=== PATIENT | female | born 1995 | race Caucasian/White ===

== ENCOUNTER 2024-04-13 19:19 | Emergency (ER) | payer OTHER, SELFPAY ==
[2024-04-13 19:25] VITALS: BP 147/75; PULSE 84; RESP 16; TEMP 36.4; O2SAT 100
--- NOTE | 2024-04-13 19:45 | ED.SKABFB ---
HPI - Skin/Abscess/Foreign Bdy General Chief complaint: Skin/Abscess/Foreign Body Stated complaint: spider bite on stomach Time Seen by Provider: 04/13/24 19:39 Source: patient, RN notes reviewed and old records reviewed Mode of arrival: ambulatory Limitations: no limitations History of Present Illness HPI narrative: 29 year old female who presents to express care with complaints of red round area on abdomen that patient is concerned could be spider bite. Patient reports that redness around the initial pinpoint dave has increased in size daily. and now there seems to be a tail off of it. Patient reports no acute pain to area, no fevers chills or sweats, tissue is not warm to touch no sloughing of tissue initial pinpoint dave in center of redness is red in color. Patient reports that she is breast feeding twice daily morning and night. MD complaint: insect bite/sting and abscess/boil Onset (ago): day(s) (3) Location: chest (abdomen) Severity scale (1-10): 3 Quality: aching Treatments prior to arrival: none Related Data Allergies Allergy/AdvReac Type Severity Reaction Status Date / Time No Known Allergies Allergy Verified 04/13/24 19:52 Review of Systems Review of Systems: CONSTITUTIONAL: Denies fever, chills, or sweats. CARDIOVASCULAR: Denies chest pain, palpitations, or edema. RESPIRATORY: Denies cough or dyspnea. GASTROINTESTINAL: Denies abdominal pain, nausea, vomiting SKIN: Reports redness and swelling area to abdomen with center point red bite, Denies purulent drainage, vesicles, bullae, numbness, pain beyond proportion MUSCULOSKELETAL: Denies myalgia. NEUROLOGIC: Denies headache, numbness All systems reviewed & are unremarkable except as noted in HPI and below PMFSH Past Medical History Medical History (Updated 04/14/24 @ 20:23 by Sofiya Vega NP) Gall bladder disease Surgical History Surgical History (Updated 04/14/24 @ 20:24 by Sofiya Vega NP) History of tonsillectomy S/P wisdom tooth extraction Social History Social History (Updated 04/14/24 @ 20:23 by Sofiya Vega NP) Smoking status: Never smoker Alcohol intake: current Alcohol use details: rare Substance use type: does not use Living arrangements: with family Gender identity (if verbalized by the patient): Female Comments At time of signature, agree with nursing past medical, surgical, social and family history. There is no relevant family history pertinent to the presenting complaint Exam Narrative: GENERAL: Well-appearing, well-nourished, and in no acute distress. HEAD: Normocephalic, atraumatic. EYES: PERRLA and EOMI. ENT: Nares clear, no rhinorrhea or epistaxis. Mucous membranes moist. NECK: Supple.no lymphadenopathy CHEST: Clear to auscultation. No respiratory distress. HEART: Regular rate and rhythm. No murmur heard. Normal peripheral pulses. ABDOMEN: Soft, nontender, nondistended, normal active bowel sounds. EXTREMITIES: Normal range of motion. No edema. SKIN: Warm, dry. Erythema, induration, minimal tenderness,no warmth with surrounding redness 3cm diameter with red streak off upper area of redness NEURO: No focal deficits. Alert and oriented x3. Course Course Emergency Course: Patient is aware of diagnosis, understands and agrees to treatment plan. Anticipatory guidance given. Patient agrees to follow-up as directed and is aware of reasons to seek care at the emergency department. Portions of this record may have been created with voice recognition software Level of Care: Express Care Visit Vital Signs Vital signs: Vital Signs Temperature 36.4 C L 04/13/24 19:25 Pulse Rate 84 04/13/24 19:25 Respiratory Rate 16 04/13/24 19:25 Blood Pressure 147/75 H 04/13/24 19:25 Pulse Oximetry 100 04/13/24 19:25 Oxygen Delivery Room Air 04/13/24 19:25 Temperature 36.4 C L 04/13/24 19:25 Pulse Rate 84 04/13/24 19:25 Respiratory Rate 16 04/13/24 19:25 Blood Pressu
== END 2024-04-13 20:10 | disposition home or self-care (01) ==
PROVIDERS: Emergency Provider Registered Nurse
DX: L02.211 Cutaneous abscess of abdominal wall (principal)
CPT/HCPCS: 99213; G0463